=== PATIENT | female | born 1945 | race Caucasian/White ===

== ENCOUNTER 2017-09-29 16:42 | Inpatient (IN) | payer MEDICARE ==
[~2017-09-29] VITALS: Ht 162.6 cm; Wt 59.4 kg
[~2017-09-29 16:42] MED LIST: BROVANA15 MCG/2 M NEB; CALTRATE-600600 MG PO; CIPRO500 MG PO; DALIRESP500 MCG PO; FIORICET TABLET1 TAB PO; HALCION0.25 MG PO; LOPRESSOR25 MG PO; NORCO 10/325 TA1 TA1 PO; OMNICEF300 MG PO; OXYBUTYNIN CHLOR5 MG PO; OXYCONTIN10 MG PO; PHENERGAN25 M1 PO; PRINIVIL20 MG PO; PROVENTIL/2.5 MG/3 M INH; SAVELLA50 MG PO; SOMA350 MG PO; TESSALON PERLE100 MG PO; VITAMIN B-1000 MCG/M IM; VITAMIN D3400 UNI1 PO; XANAX1 MG PO; ZITHROMAX250 MG PO
[2017-09-29 17:49] LABS: BASOPHILS 0.3 % (0-2); EOSINOPHILS 1.6 % (0-7); HEMATOCRIT 41.3 % (36.0-48.0); HEMOGLOBIN 13.6 g/dL (12-16); IMMATURE GRANULOCYTES 0.1 % (0-5); LYMPHOCYTES 40.7 % (15-50); MCH 31.9 pg (26.0-34.0); MCHC 32.9 g/dL (31.0-37.0); MCV 96.7 fL (80.0-100.0); MEAN PLATELET VOLUME 10.8 fL (7.4-10.4); MONOCYTES 9.7 % (2-11); NEUTROPHILS 47.6 % (40-80); RBC 4.27 10x6/uL (4.00-5.40); WBC 6.7 10x3/uL (4.8-10.8)
[2017-09-29 17:52] LABS: PLATELET COUNT 250 10x3/uL (130-400)
[2017-09-29 18:20] LABS: ALBUMIN 3.3 g/dL (3.4-5.0); ALKALINE PHOSPHATASE 265 U/L (46-116); ALT (SGPT) 161 U/L (10-68); CALC OSMOLALITY 279 mosm/kg (275-300); CALCIUM 9.4 mg/dL (8.5-10.1); CARBON DIOXIDE 29.8 mmol/L (21.0-32.0); CHLORIDE - SERUM 105 mmol/L (98-107); CREATININE - SERUM 0.8 mg/dL (0.6-1.3); GLUCOSE 87 mg/dL (74-106); POTASSIUM - SERUM 3.9 mmol/L (3.5-5.1); PROTEIN - SERUM 7.2 g/dL (6.4-8.2); SODIUM 142 mmol/L (136-145); UREA NITROGEN 8 mg/dL (7-18); eGFR NON AFRICAN AMERICAN 75 mL/min (90-120)
[2017-09-29 18:23] LABS: TROPONIN-I < 0.017 ng/mL (0.000-0.060)
[2017-09-29 18:26] VITALS: BP 125/73; Ht 162.6 cm; Wt 59.4 kg
[2017-09-29 20:00] VITALS: BP 133/59
[2017-09-30] VITALS: BP 122/53
[2017-09-30 04:00] VITALS: BP 114/52
[2017-09-30 05:35] LABS: BASOPHILS 0.2 % (0-2); EOSINOPHILS 1.5 % (0-7); HEMATOCRIT 37.7 % (36.0-48.0); IMMATURE GRANULOCYTES 0.2 % (0-5); LYMPHOCYTES 47.9 % (15-50); MCH 31.1 pg (26.0-34.0); MCHC 31.8 g/dL (31.0-37.0); MCV 97.7 fL (80.0-100.0); MONOCYTES 9.6 % (2-11); NEUTROPHILS 40.6 % (40-80); PLATELET COUNT 240 10x3/uL (130-400); RBC 3.86 10x6/uL (4.00-5.40); RDW 13.1 % (11.5-14.5)
[2017-09-30 05:54] LABS: ALBUMIN 2.8 g/dL (3.4-5.0); ALKALINE PHOSPHATASE 218 U/L (46-116); ALT (SGPT) 122 U/L (10-68); AMYLASE - SERUM 40 U/L (25-115); CALC OSMOLALITY 280 mosm/kg (275-300); CALCIUM 8.4 mg/dL (8.5-10.1); CARBON DIOXIDE 27.6 mmol/L (21.0-32.0); CHLORIDE - SERUM 107 mmol/L (98-107); CREATININE - SERUM 0.8 mg/dL (0.6-1.3); GLUCOSE 116 mg/dL (74-106); LIPASE 56 U/L (73-393); POTASSIUM - SERUM 3.4 mmol/L (3.5-5.1); PROTEIN - SERUM 6.2 g/dL (6.4-8.2); SODIUM 141 mmol/L (136-145); UREA NITROGEN 10 mg/dL (7-18); eGFR NON AFRICAN AMERICAN 75 mL/min (90-120)
--- NOTE | 2017-09-30 07:35 | NUR ---
PT AOX4 RESP EVEN AND NONLABORED PT DENIES NEEDS AT THIS TIME IV TO LEFT FOREARM PATENT AND INTACT AT THIS TIME SRX2 BED AT LOWEST SETTING CALL LIGHT WITHIN REACH WILL CONTINUE TO MONITOR
[2017-09-30 08:45] VITALS: BP 117/56
[2017-09-30 13:33] VITALS: BP 110/43
[2017-09-30 16:45] VITALS: BP 144/70
[2017-09-30 20:00] VITALS: BP 148/68
--- NOTE | 2017-09-30 20:43 | NUR ---
ER DR CALLED FOR 4MG ZOFRAN IV Q6HP FOR NAUSEA AFTER PHENERGAN WAS VOMITED UP
--- NOTE | 2017-09-30 21:27 | NUR ---
PATIENT REQUESTED PIV IN LEFT FA TO BE D/C AND A NEW ONE STARTED. 20G STARTED IN RIGHT FOREARM.
--- NOTE | 2017-09-30 22:15 | NUR ---
VEIN TURNED RED FROM NEW PIV SITE IN RIGHT FOR ARM. PIV LEFT INPLACE WITH ICE AND HEAT FOR THE PATIENT TO ALTERNATE NEEDED. 20G PIV TO THE LEFT UNDERSIDE FOREARM. VANC STARTED WITH PUMP.
--- NOTE | 2017-10-01 02:15 | NUR ---
RN NOTE: PT RESTING ON RIGHT SIDE WITH EYES CLOSED AND UNLABORED BREATHING. IV IN RIGHT FA SALINE LOCKED. TELEMETRY IN PLACE. WILL CONTINUE TO MONITOR FOR NEEDS. SIDE RAILS UP X2 FOR SAFETY.
[2017-10-01 07:09] LABS: BILIRUBIN - TOTAL 0.21 mg/dL (0.2-1.3); CALCIUM 9.2 mg/dL (8.5-10.1); CARBON DIOXIDE 27.7 mmol/L (21.0-32.0); CREATININE - SERUM 0.9 mg/dL (0.6-1.3); PROTEIN - SERUM 7.2 g/dL (6.4-8.2)
[2017-10-01 07:10] LABS: ANION GAP 11.7 mmol/L (8-16); POTASSIUM - SERUM 4.4 mmol/L (3.5-5.1)
--- NOTE | 2017-10-01 08:00 | NUR ---
ASSESSMENT PER FLOW SHEET.PT WITHOUT DISTRESS.CALL LIGHT IN REACH
[2017-10-01 11:04] VITALS: BP 124/59
[2017-10-01 13:32] VITALS: BP 111/61
--- NOTE | 2017-10-01 19:00 | NUR ---
REMAINS WITHOUT NEEDS,WITHOUT CHANE.CONT PLAN OF CARE
[2017-10-01 19:07] LABS: IMMUNOGLOBULIN A 288 mg/dL (64-422); IMMUNOGLOBULIN G 759 mg/dL (700-1600)
[2017-10-01 20:00] VITALS: BP 126/74
[2017-10-02 04:00] VITALS: BP 133/72
--- NOTE | 2017-10-02 07:29 | NUR ---
REPORT RECEIVED FROM TERMITE EXTERMINATOR HELPER NURSE. CALL LIGHT IN REACH.
--- NOTE | 2017-10-02 08:46 | NUR ---
ASSESSMENT COMPLETED. AM MEDS ADMINISTERED. REQUESTING IV PAIN MEDS BUT TOO SOON. CALL LIGHT IN REACH. WILL CONTINUE WITH PLAN OF CARE.
--- NOTE | 2017-10-02 09:23 | NUR ---
Vancomycin trough is 10.4, increased to 1gm q12h and started 12-11 at 1800.
--- NOTE | 2017-10-02 09:35 | NUR ---
MORPHINE 3 MG SIVP PER C/O PAIN OF 3 TO CHEST. CALL LIGHT IN REACH.
[2017-10-02 09:57] VITALS: BP 146/53
--- NOTE | 2017-10-02 11:07 | NUR ---
STATES PAIN IS STILL A 10 AND SHE DID NOT FEEL ANY RELIEF. PATIENT IS LYING IN BED WATCHING TV AND TALKING ON THE PHONE. STATES SHE WATCHED ME DRAW IT UP AND PUSH IT BUT SHE STILL DOESN'T FEEL ANYTHING. NORCO PO ADMINISTERED. C/O HAVING TO WAIT 7 HOURS FOR PAIN MEDS LAST NIGHT BUT THE LONGEST SHE HAD TO WAIT WAS 4.5 HOURS. CALL LIGHT IN REACH.
--- NOTE | 2017-10-02 12:01 | NUR ---
STATES PAIN IS NOW DOWN TO A 7 OR 8. WILL TAKE ANOTHER NURSE IN ROOM WITH ME NEXT TIME TO WITNESS ME ADMINISTERING MED.
[2017-10-02 12:12] LABS: IMMUNOGLOBULIN E 79 IU/mL (0-100)
[2017-10-02 12:57] VITALS: BP 136/71
--- NOTE | 2017-10-02 13:20 | NUR ---
PT HERE FOR COPD EXACERBATION FOR THIS VISIT IV TO RIGHT FOREARM PATENT AND INTACT AT THIS TIME PT AOX4 RESP EVEN AND NONLABORED AT THIS TIME SRX2 BED AT LOWEST SETTING CALL LIGHT WITHIN REACH WILL CONTINUE TO MONITOR
[2017-10-02 16:31] VITALS: BP 134/70
--- NOTE | 2017-10-02 17:40 | NUR ---
PATIENT IV RESTARTED IN RIGHT ARM. PATIENT TOLERATED WITH SMALL AMOUNT OF PAIN. 20 G X 1 STICK. MORPHINE 3 MG GIVEN IVP CALL. LIGHT WITHIN REACH.
[2017-10-02 20:00] VITALS: BP 108/39
--- NOTE | 2017-10-02 20:00 | NUR ---
ASSESSSMENT PER FLOWSHEET. UP AD HUI WALKING IN HALLWAY. IV PATENT RT FOREARM OF NS AT 30CC'S/HR.
--- NOTE | 2017-10-02 21:45 | NUR ---
C/O LUNG AND BACK PAIN RATES PAIN LEVEL #9. MORPHINE 3MG IVP GIVEN FOR PAIN RELIEF.
[2017-10-03] VITALS: BP 94/49
--- NOTE | 2017-10-03 | NUR ---
EYES CLOSED RESPIRATIONS WITH EASE AND UNLABORED.
--- NOTE | 2017-10-03 03:36 | NUR ---
C/O PAIN LUNGS/BACK RATES PAIN #6. MORPHINE 3MG IVP GIVEN FOR PAIN CONTROL.
[2017-10-03 04:00] VITALS: BP 138/55
--- NOTE | 2017-10-03 05:40 | NUR ---
REQUESTING MED FOR SPASMS. VALIUM 10 MG PO GIVEN FOR RELIEF.
--- NOTE | 2017-10-03 07:00 | NUR ---
REPORT RECIEVED ASSUMED CARE. PATIENT IN BED WITH IV INTACT. NO COMPLAINTS AT THIS TIME. CALL LIGHT WITHIN REACH.
[2017-10-03 09:00] VITALS: BP 135/63
[2017-10-03 09:44] LABS: BASOPHILS 0.2 % (0-2); EOSINOPHILS 1.4 % (0-7); HEMATOCRIT 39.1 % (36.0-48.0); HEMOGLOBIN 12.7 g/dL (12-16); IMMATURE GRANULOCYTES 0.2 % (0-5); LYMPHOCYTES 45.2 % (15-50); MCH 31.8 pg (26.0-34.0); MCHC 32.5 g/dL (31.0-37.0); MCV 97.8 fL (80.0-100.0); MEAN PLATELET VOLUME 10.7 fL (7.4-10.4); MONOCYTES 9.8 % (2-11); NEUTROPHILS 43.2 % (40-80); PLATELET COUNT 214 10x3/uL (130-400); RDW 13.4 % (11.5-14.5); WBC 6.6 10x3/uL (4.8-10.8)
[2017-10-03 10:03] LABS: ALKALINE PHOSPHATASE 232 U/L (46-116); ALT (SGPT) 95 U/L (10-68); CALC OSMOLALITY 279 mosm/kg (275-300); CALCIUM 9.9 mg/dL (8.5-10.1); CARBON DIOXIDE 28.9 mmol/L (21.0-32.0); CHLORIDE - SERUM 105 mmol/L (98-107); CREATININE - SERUM 0.6 mg/dL (0.6-1.3); POTASSIUM - SERUM 3.8 mmol/L (3.5-5.1); PROTEIN - SERUM 6.7 g/dL (6.4-8.2); SODIUM 141 mmol/L (136-145); UREA NITROGEN 10 mg/dL (7-18); eGFR NON AFRICAN AMERICAN > 90 mL/min (90-120)
[2017-10-03 10:04] LABS: GLUCOSE 102 mg/dL (74-106)
[2017-10-03 12:25] VITALS: BP 151/66
--- NOTE | 2017-10-03 16:00 | NUR ---
IV RED AND HARD. REMOVED WITH CATH TIP INTACT. RESTARTED IN RIGHT WRIST 20 G X 1 STICK. TOLERATED WITH SMALL AMOUNT OF PAIN. CALL LIGHT WITHIN REACH.
[2017-10-03 16:15] VITALS: BP 133/69
--- NOTE | 2017-10-03 18:45 | NUR ---
PATIENT UP IN JEREZ AMBULATING WITH NO PROBLEMS. IV INTACT.
--- NOTE | 2017-10-03 20:22 | NUR ---
ASSESSMENT PER FLOWSHEET. C/O PAIN BACK AND LUNGS CHRONIC. RATES PAIN LEVEL #8. MORPHINE 3MG IVP FOR PAIN CONTROL.
--- NOTE | 2017-10-03 22:10 | NUR ---
MEDS GIVEN PER DEC. VISITING WITH HER DAUGHTER.
--- NOTE | 2017-10-03 23:33 | NUR ---
EYES CLOSED RESPIRATIONS WITH EASE AND UNLABORED.
[2017-10-04] VITALS: BP 139/60
--- NOTE | 2017-10-04 00:10 | NUR ---
C/O PAIN IN BACK AND LUNGS (CHRONIC). RATES PAIN LEVEL #6-8. MORPHINE 3MG IVP GIVEN FOR PAIN CONTROL.PT USING INCENTIVE SPIROMETER.
--- NOTE | 2017-10-04 03:03 | NUR ---
EYES CLOSED RESPIRATIONS WITH EASE AND UNLABORED.
--- NOTE | 2017-10-04 06:00 | NUR ---
MEDS GIVEN PER MAR.NO CHANGES IN ASSESSMENT.
[2017-10-04 06:18] LABS: BASOPHILS 0.1 % (0-2); EOSINOPHILS 0.8 % (0-7); HEMATOCRIT 39.1 % (36.0-48.0); HEMOGLOBIN 12.6 g/dL (12-16); IMMATURE GRANULOCYTES 0.1 % (0-5); LYMPHOCYTES 43.2 % (15-50); MCH 31.3 pg (26.0-34.0); MCHC 32.2 g/dL (31.0-37.0); MCV 97.3 fL (80.0-100.0); MEAN PLATELET VOLUME 10.8 fL (7.4-10.4); MONOCYTES 10.5 % (2-11); NEUTROPHILS 45.3 % (40-80); PLATELET COUNT 229 10x3/uL (130-400); RBC 4.02 10x6/uL (4.00-5.40); RDW 13.6 % (11.5-14.5); WBC 7.2 10x3/uL (4.8-10.8)
[2017-10-04 06:30] LABS: ALBUMIN 2.9 g/dL (3.4-5.0); ALKALINE PHOSPHATASE 265 U/L (46-116); ALT (SGPT) 173 U/L (10-68); CALC OSMOLALITY 281 mosm/kg (275-300); CALCIUM 9.5 mg/dL (8.5-10.1); CARBON DIOXIDE 29.1 mmol/L (21.0-32.0); CHLORIDE - SERUM 106 mmol/L (98-107); CREATININE - SERUM 0.7 mg/dL (0.6-1.3); GLUCOSE 95 mg/dL (74-106); POTASSIUM - SERUM 4.3 mmol/L (3.5-5.1); PROTEIN - SERUM 6.6 g/dL (6.4-8.2); SODIUM 141 mmol/L (136-145); UREA NITROGEN 15 mg/dL (7-18); eGFR NON AFRICAN AMERICAN 87 mL/min (90-120)
[2017-10-04 08:10] VITALS: BP 146/62
--- NOTE | 2017-10-04 10:42 | NUR ---
Patient Name: ADELE COSBY Admission Status: Elective Accout number: [id number] Admission Date: 09-29-2017 : 1945 Admission Diagnosis:PNEUMONIA, UNSPECIFIED ORGANISM Attending: SANDRA CULLEN Current LOS: 5 Anticipated DC Date: Planned Disposition: Home Primary Insurance: [employer] ADV Discharge Planning Comments: CM met with patient to assess discharge planning needs. Patient lives independently at home where she plans to return too. Patient stated that she lives on property with her family. She lives in a handicap house and she has a walker and wheelchair at home. Her daughter Juan Manuel Castillo will be the one to drive her home. She stated that it is safe to return home. Patient does not want HH at this time, CM will continue to follow and assist with discharge planning needs. PCP: [facility] Juan Manuel Castillo [employer] Director: Sraay Livingston * Is the patient Alert and Oriented? Yes 0 * How many steps to enter\exit or inside your home? 1 0 * PCP LUCAS 0 * Pharmacy [facility] 0 * Preadmission Environment Home Alone 0 * ADLs Independent 0 * Equipment Walker Wheelchair 0 * Other Equipment HANDRAILS 0 * List name and contact numbers for known caregivers / representatives who currently or will assist patient after discharge: JUAN MANUEL CASTILLO (DAUGHTER) 0 * Community resources currently utilized None 0 * Additional services required to return to the preadmission environment? No 0 * Can the patient safely return to the preadmission environment? Yes 0 * Has this patient been hospitalized within the prior 30 days at any hospital? No 0 Grand Total: 0
[2017-10-04] MEDS ORDERED: MEDROL DOSE PACK4 MG PO (13:45)
[2017-10-04] MEDS ORDERED: DOXYCYCLINE HY100 M2 PO (13:45)
--- NOTE | 2017-10-04 14:04 | NUR ---
DR GAVIN CALLED FOR DISCHARGE ORDERS. CALLED DOXY AND MEDROL DOSE PACK TO POC PER PT REQUEST
[2017-10-04] MEDS ORDERED: TORADOL10 MG PO (14:10)
--- NOTE | 2017-10-04 15:04 | NUR ---
DISCHARGE INSTRUCTIONS REVIEWED AT THIS TIME. NO QUESTIONS OR CONCERNS VOICED. PIV TO R WRIST DC'D WITH CATHETER INTACT. PRESSURE AND DRESSING APPLIED. ESCORTED OUT VIA WC.
== END 2017-10-04 15:05 | disposition home or self-care (01) | DRG 178 ==
LOC: D.MS 16:42
PROVIDERS: Family Medicine; Internal Medicine Pulmonary Disease; ADMIT Family Medicine
DX: J15.6 Pneumonia due to other Gram-negative bacteria (principal); J98.11 Atelectasis; J44.0 Chronic obstructive pulmonary disease with (acute) lower respiratory infection; J44.1 Chronic obstructive pulmonary disease with (acute) exacerbation; B37.0 Candidal stomatitis; F17.203 Nicotine dependence unspecified, with withdrawal; R79.89 Other specified abnormal findings of blood chemistry; J32.9 Chronic sinusitis, unspecified; E87.6 Hypokalemia; Z86.73 Personal history of transient ischemic attack (TIA), and cerebral infarction without residual deficits; Z95.0 Presence of cardiac pacemaker; K21.9 Gastro-esophageal reflux disease without esophagitis; Z77.090 Contact with and (suspected) exposure to asbestos; I34.1 Nonrheumatic mitral (valve) prolapse; I10 Essential (primary) hypertension; F41.9 Anxiety disorder, unspecified

== ENCOUNTER 2019-03-16 22:17 | Inpatient (IN) | payer OTHER ==
[~2019-03-16] VITALS: Ht 162.6 cm; Wt 52.2 kg
[~2019-03-16 22:17] MED LIST changes: +BUTALB-APAP-CA1 EACH PO; +DOXYCYCLINE HY100 M2 PO; -FIORICET TABLET1 TAB PO; +MEDROL DOSE PACK4 MG PO; +TORADOL10 MG PO
[2019-03-16 22:49] LABS: BASOPHILS 0.1 % (0-2); EOSINOPHILS 0.1 % (0-7); HEMATOCRIT 41.3 % (36.0-48.0); HEMOGLOBIN 13.9 g/dL (12-16); IMMATURE GRANULOCYTES 0.3 % (0-5); LYMPHOCYTES 14.9 % (15-50); MCH 31.8 pg (26.0-34.0); MCHC 33.7 g/dL (31.0-37.0); MCV 94.5 fL (80.0-100.0); MEAN PLATELET VOLUME 11.5 fL (7.4-10.4); MONOCYTES 15.3 % (2-11); NEUTROPHILS 69.3 % (40-80); PLATELET COUNT 214 10x3/uL (130-400); RBC 4.37 10x6/uL (4.00-5.40); RDW 14.1 % (11.5-14.5); WBC 11.4 10x3/uL (4.8-10.8)
[2019-03-16 22:56] LABS: APPEARANCE TURBID (CLEAR); BILIRUBIN 1+ (NEGATIVE); COLOR YELLOW (YELLOW); GLUCOSE NEGATIVE (NEGATIVE); KETONE NEGATIVE (NEGATIVE); NITRITE POSITIVE (NEGATIVE); PROTEIN 1+ mg/dL (NEGATIVE); UROBILINOGEN NORMAL (NORMAL); WHITE CELLS - URINE >50 /hpf (0-5)
[2019-03-16 22:57] LABS: BACTERIA MANY /hpf (NONE SEEN); EPITHELIAL CELLS NSEEN /hpf (0-5); RED CELLS - URINE 0-5 /hpf (0-5)
[2019-03-16 23:06] LABS: ANION GAP 10.6 mmol/L (8-16); BILIRUBIN - TOTAL 0.35 mg/dL (0.2-1.3); CALCIUM 9.3 mg/dL (8.5-10.1); CARBON DIOXIDE 31.1 mmol/L (21.0-32.0); CREATININE - SERUM 0.8 mg/dL (0.6-1.3); MAGNESIUM - SERUM 1.9 mg/dL (1.8-2.4); POTASSIUM - SERUM 3.7 mmol/L (3.5-5.1)
[2019-03-17 02:05] VITALS: BP 130/61; BMI 19.7
[2019-03-17 04:58] VITALS: BP 134/78
[2019-03-17 07:37] VITALS: BP 135/84
--- NOTE | 2019-03-17 09:32 | NUR ---
AM MEDS GIVEN AT THIS TIME. ALSO GAVE 1000MG OF TYLENOL FOR TEMP OF 101.1. ALSO GAVE 2MG OF MORPHINE FOR PAIN LEVEL OF 8/10. PT DENIES ANY OTHER NEEDS AT THIS TIME. A/O X4, RESP EVEN AND NONLABORED ON RA. RT WRIST IV SL. CALL LIGHT IN REACH, NAD NOTED, WILL CONTINUE TO MONITOR.
--- NOTE | 2019-03-17 11:04 | NUR ---
PT NOTIFIED THIS NURSE THAT SHE IS GOING OUTSIDE TO GET SOME FRESH AIR. RECHECKED TEMP WHICH NOW IS 98.3.
[2019-03-17 11:22] VITALS: BP 129/67
--- NOTE | 2019-03-17 11:30 | NUR ---
PT BACK TO ROOM, ASKING FOR PAIN MEDICATION, INFOMRED HER THAT SHE CANNOT HAVE HER MORPHINE UNTIL AROUND 1320. INFOMRED PT THAT SHE DOES HAVE NORCO ORDER IF SHE WANTS IT NOW. PT STATED THAT SHE WOULD WAIT UNTIL SHE COULD HAVE THE MORPHINE.
--- NOTE | 2019-03-17 14:03 | NUR ---
RT WRIST IV LEAKING. D/C IV WITH CATHETER TIP INTACT. NEW 22G IV STARTED TO LT FA X2 STICKS. 2MG OF MORPHINE GIVEN AT THIS TIME. FOR PAIN LEVEL OF 8/10, ALSO GAVE 4MG OF ZOFRAN FOR NAUSEA. PT DENIES ANY OTHER NEEDS AT THIS TIME. CALL LIGHT IN REACH, NAD NOTED, WILL CONTINUE TO MONITOR.
[2019-03-17 15:28] VITALS: BP 109/59
--- NOTE | 2019-03-17 19:17 | NUR ---
PATIENT AMBULATING AROUND ROOM. BROUGHT PATIENT WATER PER HER REQUEST. PATIENT DENIES OTHER NEEDS AT THIS TIME. BED IN LOWEST POSITION AND CALL LIGHT WITHIN REACH. ENCOURAGED THE PATIENT TO CALL IF SHE HAS NEEDS. WILL CONTINUE TO MONITOR.
[2019-03-17 19:27] VITALS: BP 143/70
[2019-03-17] MEDS ORDERED: XANAX1 MG PO (20:20)
--- NOTE | 2019-03-17 20:23 | NUR ---
SPOKE WITH DR. RAM WHO RESTARTED PATIENT'S HOME XANAX
--- NOTE | 2019-03-17 20:35 | NUR ---
CALLED VENDING MACHINE ASSEMBLER TO PULL PATIENT'S NEW ORDER XANAX
--- NOTE | 2019-03-17 20:37 | NUR ---
EXPLAINED TO THE PATIET THAT I CALLED THE ROUTE SALES TRAINEE TO PULL HER XANAX. I EXPLAINED THAT IT WOULD BE A WHILE BEFORE THE ROUTE SALES TRAINEE CAME TO PULL MED AND THAT I WOULD BRING IT TO HER SOON IT IS PULLED. PATIENT VERBALIZED UNDERSTANDING
[2019-03-18] VITALS: BP 108/45
[2019-03-18 04:34] VITALS: BP 103/68
--- NOTE | 2019-03-18 07:08 | NUR ---
AM ROUNDS- PT IN BED, A/O X4, RESP EVEN AND NONLABORED ON RA. LT FA IV SL. MONITOR SHOWING SR WITH RATE OF 79 ANB BBB. PACEMAKER NOTED TO LT CHEST. PT DENIES ANY NEEDS AT THIS TIME. CALL LIGHT IN REACH, NAD NOTED, WILL CONTINUE PLAN OF CARE.
[2019-03-18 07:16] LABS: BASOPHILS 0 % (0-2); EOSINOPHILS 0.4 % (0-7); HEMATOCRIT 36.1 % (36.0-48.0); HEMOGLOBIN 12.1 g/dL (12-16); IMMATURE GRANULOCYTES 0.2 % (0-5); LYMPHOCYTES 19.9 % (15-50); MCH 31.6 pg (26.0-34.0); MCHC 33.5 g/dL (31.0-37.0); MCV 94.3 fL (80.0-100.0); MEAN PLATELET VOLUME 11.7 fL (7.4-10.4); MONOCYTES 18.5 % (2-11); PLATELET COUNT 204 10x3/uL (130-400); RBC 3.83 10x6/uL (4.00-5.40); RDW 14.1 % (11.5-14.5)
[2019-03-18 07:26] LABS: WBC 8.2 10x3/uL (4.8-10.8)
[2019-03-18 07:42] LABS: CALC OSMOLALITY 279 mosm/kg (275-300); CALCIUM 8.9 mg/dL (8.5-10.1); CARBON DIOXIDE 29.5 mmol/L (21.0-32.0); CHLORIDE - SERUM 105 mmol/L (98-107); CREATININE - SERUM 0.6 mg/dL (0.6-1.3); GLUCOSE 107 mg/dL (74-106); POTASSIUM - SERUM 3.2 mmol/L (3.5-5.1); SODIUM 141 mmol/L (136-145); UREA NITROGEN 9 mg/dL (7-18); eGFR NON AFRICAN AMERICAN > 90 mL/min (90-120)
[2019-03-18 07:56] VITALS: Ht 162.6 cm; Wt 52.2 kg
[2019-03-18 08:27] VITALS: BP 134/72
--- NOTE | 2019-03-18 08:38 | NUR ---
AM MEDS GIVEN AT THIS TIME. ALSO GAVE 40MEQ OF K FOR LOW K OF 3.2. PT DENIES ANY NEEDS AT THIS TIME. CALL LIGHT IN REACH, NAD NOTED, WILL CONTINUE TO MONITOR.
--- NOTE | 2019-03-18 10:17 | NUR ---
COVERED PT'S IV FOR SHOWER AND PROVIDED HER WITH SUPPLIES NEEDED FOR SHOWER.
--- NOTE | 2019-03-18 10:38 | NUR ---
NOTIFIED BY SPRING UPHOLSTERER THAT PT WAS GOING OUTSIDE FOR FRESH AIR.
--- NOTE | 2019-03-18 10:48 | NUR ---
PT BACK TO ROOM, DENIES ANY NEEDS AT THIS TIME. CALL LIGHT IN REACH, NAD NOTED, WILL CONTINUE TO MONITOR.
[2019-03-18 12:31] VITALS: BP 112/69
[2019-03-18 17:03] VITALS: BP 125/68
--- NOTE | 2019-03-18 18:36 | NUR ---
1MG OF XANAX GIVEN PER PT REQUEST. PT TALKING ON PHONE, DENIES ANY OTHE NEEDS AT THIS TIME.
--- NOTE | 2019-03-18 19:25 | NUR ---
PATIENT RESTING IN BED AND DENIES NEEDS AT THIS TIME. BED IN LOWEST POSITION AND CALL LIGHT WITHIN REACH. ENCOURAGED THE PATIENT TO CALL IF SHE HAS NEEDS. WILL CONTINUE TO MONITOR.
[2019-03-18 20:18] VITALS: BP 109/46
[2019-03-19 00:16] VITALS: BP 115/51
[2019-03-19 04:14] VITALS: BP 123/53
[2019-03-19 07:04] LABS: CALC OSMOLALITY 285 mosm/kg (275-300); CARBON DIOXIDE 29.2 mmol/L (21.0-32.0); CHLORIDE - SERUM 106 mmol/L (98-107); CREATININE - SERUM 0.6 mg/dL (0.6-1.3); GLUCOSE 110 mg/dL (74-106); POTASSIUM - SERUM 4.3 mmol/L (3.5-5.1); SODIUM 143 mmol/L (136-145); eGFR NON AFRICAN AMERICAN > 90 mL/min (90-120)
[2019-03-19 07:05] LABS: HEMATOCRIT 36.4 % (36.0-48.0); HEMOGLOBIN 12.2 g/dL (12-16); LYMPHOCYTES 20.3 % (15-50); MCHC 33.5 g/dL (31.0-37.0); MCV 95.5 fL (80.0-100.0); NEUTROPHILS 63.8 % (40-80); PLATELET COUNT 191 10x3/uL (130-400); RBC 3.81 10x6/uL (4.00-5.40); RDW 13.6 % (11.5-14.5); UREA NITROGEN 12 mg/dL (7-18); WBC 6.3 10x3/uL (4.8-10.8)
[2019-03-19 07:35] VITALS: BP 118/82
--- NOTE | 2019-03-19 07:36 | NUR ---
MORNING ROUNDS MADE. PT UP AB HUI IN ROOM. A/O X 4. DENIES PAIN AT THIS TIME. VITALS TAKEN, STABLE. L FA IV, SL, DSRG C/D/I, NO REDNESS OR EDEMA NOTED. BREATHING EVEN AND UNLABORED. NO EDEMA NOTED. PT STATES THAT SHE DOESNT WANT HER BELLY SHOT THIS AM, DUE TO BLEEDING. NO FURTHER CONCERNS AT THIS TIME. FALL PRECAUTIONS IN PLACE. NON SKID SOCKS ON. BED LOWERED AND LOCKED. WILL CTM.
--- NOTE | 2019-03-19 08:39 | NUR ---
PT TOOK MEDS WITHOUT DIFFICULTY. NO FURTHER CONCERNS AT THIS TIME. WILL CTM.
--- NOTE | 2019-03-19 09:24 | MORECARE ---
CASE MANAGEMENT DISCHARGE SUMMARY PATIENT: ADELE COSBY UNIT: [id number] ADM DATE: 03/16/19 AGE: 73 : 46 SEX: F ROOM/BED: D.1202 AUTHOR: NAEEM VILLAREAL PHYSICIAN: REFERRING PHYSICIAN: VAUGHN RAM MD DATE OF SERVICE: 03/19/19 Discharge Plan Patient Name: ADELE COSBY Facility: [facility]:[place] : 1945 Planned Disposition: Home Anticipated Discharge Date: Discharge Date: Expected LOS: Initial Reviewer: [email or web address] Initial Review Date: 03/19/2019 Generated: 03/19/19 10:23 am Patient Name: ADELE COSBY Page [phone] at 0924 All edits/amendments must be made on the electronic document DICTATION DATE: 03/19/19922 SENIOR MARKETING ANALYST: EZRA 03/19/19922 RPT#: [id number] DC DATE: STATUS: ADM IN [facility] [address] [place] [address] END OF REPORT
--- NOTE | 2019-03-19 09:31 | MORECARE ---
CASE MANAGEMENT DISCHARGE SUMMARY PATIENT: ADELE COSBY UNIT: [id number] ADM DATE: 03/16/19 AGE: 73 : 46 SEX: F ROOM/BED: D.1202 AUTHOR: MONO,DOC PHYSICIAN: REFERRING PHYSICIAN: VAUGHN RAM MD DATE OF SERVICE: 03/19/19 Discharge Plan Patient Name: ADELE COSBY Facility: [facility]:[place] : 1945 Planned Disposition: Home Anticipated Discharge Date: Discharge Date: Expected LOS: Initial Reviewer: ELVIS Initial Review Date: 03/19/2019 Generated: 03/19/19 10:31 am Comments DCP- Discharge Planning Updated by ELVIS: Roxy Cruz on 03/19/19 8:[address] Patient Name: ADELE COSBY Admission Status: ER Accout number: [id number] Admission Date: 03-16-2019 : 1945 Admission Diagnosis: Attending: VAUGHN RAM Current LOS: 3 Anticipated DC Date: Planned Disposition: Home Primary Insurance: amiando Discharge Planning Comments: M MEET WITH PT AFTER GETTING VERBAL CONSENT TO CONTINUE WITH INITAL ASSESSMENT AND DISCHARGE NEEDS. CM EDUCATED ON ROLE OF CM AND THE SERVICES AVALIABLE SUCH HH, REHAB AND DME SERVICES. PT LIVES AT HOME WITH SISTER AND FEELS THIS IS A SAFE PLAN FOR DC.. DENIES AN CM NEEDS AT THIS TIME. CM WILL CONTIUNUE TO FOLLOW Records Assistant: Roxy Cruz DCPIA - Discharge Planning Initial Assessment Updated by [id number]: Roxy Cruz on 03/19/19 9:25 am * Is the patient Alert and Oriented? Yes * How many steps to enter\exit or inside your home? * PCP Onofre * Pharmacy [place] * Preadmission Environment Home with Family * ADLs Independent * Verbal permission to speak to the caregivers and representatives has been obtained from the patient. N/A * Community resources currently utilized Other * Additional services required to return to the preadmission environment? No * Can the patient safely return to the preadmission environment? Yes * Has this patient been hospitalized within the prior 30 days at any hospital? No Coverage Notice Reviewer: ELVIS - Roxy Cruz Notice Issued Date-Time: 03/19/2019 9:00 Notice Type: IM Discharge Notice Notice Delivered To: Patient Relationship to Patient: Self Placement Director Name: Delivery Method: HAND - Hand Delivered Elysia Days: Prior Verbal Notification: Recipient Understood Notice: Yes Recipient Signature: Yes Med Rec Note Co-signed by Attending: Coverage Notice Comment: Last DP export: 03/19/19 8:24 a Patient Name: ADELE COSBY Page [phone] at 0931 All edits/amendments must be made on the electronic document DICTATION DATE: 03/19/19929 DESCRIPTIVE CATALOG LIBRARIAN: EZRA 03/19/19929 RPT#: [id number] DC DATE: STATUS: ADM IN [facility] [address] [place] [address] END OF REPORT
[2019-03-19 10:36] VITALS: BP 151/86
--- NOTE | 2019-03-19 12:00 | NUR ---
SPOKE WITH CHELSEA IN LAB. SHE STATED THAT PT BLOOD CULTURES WOULD NOT RESULT BACK UNTIL CLOSE TO MIDNIGHT TONIGHT DUE TO TIMING WHEN BLOOD CULTURES WERE DRAWN. ALSO INQUIRED ABOUT PT URINE CULUTRE. CHELSEA INFORMED ME THAT CULTURES NEEDED TO BE SENT OFF. INFORMED DR. RENDON OF THESE RESULTS. NO FURTHER CONERNS AT THIS TIME.
--- NOTE | 2019-03-19 12:21 | NUR ---
I have reviewed this patient and I concur with the Shift Assessment completed by the Licensed Practical Nurse today this shift.
--- NOTE | 2019-03-19 13:28 | NUR ---
PT ANXIOUS TO GO HOME. REFUSES TO WEAR TELE. TELE REMOVED. PT DRESSED AND AT NURSES DESK ASKING ABOUT DC PAPERS. INFORMED PT THAT I HAVE TO WAIT FOR DR. RENDON TO PUT IN DC ORDER IN THE COMPUTER AND THEN THE DC NURSE WILL PUT TOGETHER DC PAPERWORK AND WE WILL GET HE HOME. PT STATED "I NEED OUT OF HERE BY 5 OR 6 BECUASE I GOT FAMILY WAITING ON ME AT HOME" INFORMED PT THAT I WAS DOING MY BEST. NO FURTHER CONCERNS AT THIS TIME.
[2019-03-19] MEDS ORDERED: MACROBID100 MG PO (13:48)
--- NOTE | 2019-03-19 14:54 | NUR ---
DC GIVEN TO PT IV REMOVED FROM L FA, TIP INTACT.
--- NOTE | 2019-03-19 14:55 | NUR ---
PT DC HOME, AMBLATORY, VIA PERSONAL CAR.
--- NOTE | 2019-03-20 12:03 | MORECARE ---
CASE MANAGEMENT DISCHARGE SUMMARY PATIENT: ADELE COSBY UNIT: [id number] ADM DATE: 03/16/19 AGE: 73 : 46 SEX: F ROOM/BED: D.1202 AUTHOR: MONO,DOC PHYSICIAN: REFERRING PHYSICIAN: VAUGHN RAM MD DATE OF SERVICE: 03/20/19 Discharge Plan Patient Name: ADELE COSBY Facility: [facility]:[place] : 1945 Planned Disposition: Home Anticipated Discharge Date: Discharge Date: 03/19/2019 Expected LOS: Initial Reviewer: ELVIS Initial Review Date: 03/19/2019 Generated: 03/20/19 1:03 pm Comments DCP- Discharge Planning Updated by ELVIS: Roxy Cruz on 03/19/19 8:[address] Patient Name: ADELE COSBY Admission Status: ER Accout number: [id number] Admission Date: 03-16-2019 : 1945 Admission Diagnosis: Attending: VAUGHN RAM Current LOS: 3 Anticipated DC Date: Planned Disposition: Home Primary Insurance: [employer] Discharge Planning Comments: M MEET WITH PT AFTER GETTING VERBAL CONSENT TO CONTINUE WITH INITAL ASSESSMENT AND DISCHARGE NEEDS. CM EDUCATED ON ROLE OF CM AND THE SERVICES AVALIABLE SUCH HH, REHAB AND DME SERVICES. PT LIVES AT HOME WITH SISTER AND FEELS THIS IS A SAFE PLAN FOR DC.. DENIES AN CM NEEDS AT THIS TIME. CM WILL CONTIUNUE TO FOLLOW Can Closing Machine Operator: Roxy Cruz DCPIA - Discharge Planning Initial Assessment Updated by ELVIS: Roxy Cruz on 03/19/19 9:25 am * Is the patient Alert and Oriented? Yes * How many steps to enter\exit or inside your home? * PCP Onofre * Pharmacy [place] * Preadmission Environment Home with Family * ADLs Independent * Verbal permission to speak to the caregivers and representatives has been obtained from the patient. N/A * Community resources currently utilized Other * Additional services required to return to the preadmission environment? No * Can the patient safely return to the preadmission environment? Yes * Has this patient been hospitalized within the prior 30 days at any hospital? No Coverage Notice Reviewer: ELVIS - Roxy Cruz Notice Issued Date-Time: 03/19/2019 9:00 Notice Type: IM Discharge Notice Notice Delivered To: Patient Relationship to Patient: Self Boat Garnisher Name: Delivery Method: HAND - Hand Delivered Elysia Days: Prior Verbal Notification: Recipient Understood Notice: Yes Recipient Signature: Yes Med Rec Note Co-signed by Attending: Coverage Notice Comment: Last DP export: 03/19/19 8:31 a Patient Name: ADELE COSBY Page [phone] at 1203 All edits/amendments must be made on the electronic document DICTATION DATE: 03/20/19 1202 SHOP WORKER: EZRA 03/20/19 1202 RPT#: [id number] DC DATE:03/19/19 STATUS: DIS IN [facility] [address] [place] [address] END OF REPORT
[2019-03-21 18:07] LABS: AEROBE ID Preliminary report (()); RESULT 1 Gram negative rods (())
== END 2019-03-19 14:55 | disposition home or self-care (01) | DRG 690 ==
LOC: D.ER 22:17 → D.M2 23:58 → D.M3 23:58
PROVIDERS: Emergency Medicine; ADMIT Internal Medicine Nephrology; ATTEND Internal Medicine Nephrology
DX: N39.0 Urinary tract infection, site not specified (principal); F17.203 Nicotine dependence unspecified, with withdrawal; B96.89 Other specified bacterial agents as the cause of diseases classified elsewhere; J44.9 Chronic obstructive pulmonary disease, unspecified; I10 Essential (primary) hypertension; N30.10 Interstitial cystitis (chronic) without hematuria; K21.9 Gastro-esophageal reflux disease without esophagitis; Z86.73 Personal history of transient ischemic attack (TIA), and cerebral infarction without residual deficits; Z95.0 Presence of cardiac pacemaker

== ENCOUNTER → 2020-04-17 13:14 | Outpatient (CLI) | payer MEDICARE ==
[2019-03-18 07:56] VITALS: BMI 19.7
[~2020-04-17 13:14] MED LIST changes: +MACROBID100 MG PO
== END | disposition home or self-care (01) ==
LOC: D.US 13:14
PROVIDERS: ATTEND Internal Medicine Cardiovascular Disease
DX: R55 Syncope and collapse (principal)

== ENCOUNTER 2020-05-05 13:30 | Inpatient (IN) | payer MEDICARE ==
[~2020-05-05] VITALS: Ht 162.6 cm; Wt 51.1 kg
[2020-05-06] MEDS ORDERED: BUTALB-APAP-CA1 EACH PO (14:34)
[2020-05-06] MEDS ORDERED: VISTARIL50 MG PO (14:35)
[2020-05-06] MEDS ORDERED: TOPROL XL25 MG PO (15:04)
[2020-05-06] MEDS ORDERED: BAYER CHEWABLE81 MG PO (15:10)
[2020-05-06 15:48] LABS: HEMATOCRIT 41.2 % (36.0-48.0); MCH 30.6 pg (26.0-34.0); MCHC 31.6 g/dL (31.0-37.0); MCV 96.9 fL (80.0-100.0); MEAN PLATELET VOLUME 10.4 fL (7.4-10.4); RBC 4.25 10x6/uL (4.00-5.40); RDW 13.1 % (11.5-14.5); WBC 8.1 10x3/uL (4.8-10.8)
[2020-05-06 15:55] LABS: APTT 25.9 SECONDS (22.8-39.4)
[2020-05-06 16:01] LABS: ALBUMIN 3.2 g/dL (3.4-5.0); ALKALINE PHOSPHATASE 285 U/L (30-120); ALT (SGPT) 193 U/L (10-68); BILIRUBIN - TOTAL 0.17 mg/dL (0.2-1.3); CALC OSMOLALITY 284 mosm/kg (275-300); CALCIUM 9.3 mg/dL (8.5-10.1); CHLORIDE - SERUM 109 mmol/L (98-107); CREATININE - SERUM 0.7 mg/dL (0.6-1.3); GLUCOSE 93 mg/dL (74-106); POTASSIUM - SERUM 4.4 mmol/L (3.5-5.1); PROTEIN - SERUM 6.9 g/dL (6.4-8.2); SODIUM 143 mmol/L (136-145); UREA NITROGEN 12 mg/dL (7-18); eGFR NON AFRICAN AMERICAN 87 mL/min (90-120)
[2020-05-06 16:08] LABS: INR 0.89 (0.85-1.17)
[2020-05-06 16:20] LABS: BACTERIA FEW /hpf (NEGATIVE); BILIRUBIN NEGATIVE (NEGATIVE); EPITHELIAL CELLS 0-5 /hpf (0-5); GLUCOSE NEGATIVE (NEGATIVE); KETONE NEGATIVE (NEGATIVE); NITRITE NEGATIVE (NEGATIVE); RED CELLS - URINE OCC /hpf (0-5); UROBILINOGEN NORMAL (NORMAL); WHITE CELLS - URINE 0-5 /hpf (NEGATIVE)
[2020-05-10 22:15] VITALS: BP 125/47
[2020-05-11] VITALS (23 sets, daily range): BP systolic 117–144; BP diastolic 45–74; BMI 19.4; BMI 19.6
--- NOTE | 2020-05-11 | NUR ---
PT TURNED AND REPOSITONED FOR COMFORT. MONITORS ON AND WORKING, CUFF PRESSURE QUITE A BIT LOWER THAN ART LINE, PT REQUEST TO MANAGE BP WITH CLEVIPREX AND NOT TURN NITRO BACK ON, BP MANAGED WITH CLEVIPREX PER PTS REQUEST. PRN PAIN MEDS GIVEN PER PTS REQUEST. WILL CONTINUE TO OBSERVE.
[2020-05-11] MEDS ORDERED: HALCION0.25 MG PO (10:15)
--- NOTE | 2020-05-11 18:05 | NUR ---
THIN, PALE APPEARING FEMALE PATIENT STATUS POST LEFT CAROTID ENDARTERECTOMY RECEIVED FROM OR VIA BED. REPORT RECEIVED FROM ANESTHESIA. PATIENT IS AWAKE AND GROGGY. C/O PAIN TO LEFT CAROTID INCISION 20/10 ON PAIN SCALE. DRESSING INTACT TO LEFT NECK. ICE PACK APPLIED. NING DRAIN COMPRESSED WITH SMALL AMOUTN OF BLOODY DRAINAGE. RIGHT SUBCLAVIAL TRIPLE LUMEN CATHETER INTACT. CVP LINE TRANSDUCED. WAVEFORM STABLE, LEVEL 1 MM/HG. RIGHT RADIAL ARTERIAL LINE TRANSDUCED. GOOD WAVEFORM. TEMP PROBE CUTLER TO [place]ITIKON UNIT. URINE CLEAR. DUY HOSE AND SCDS IN PLACE. SCD COMPRESSION PUMP INITIATED. CRANIAL NERVE FUNCTION INTACT.
--- NOTE | 2020-05-11 18:30 | NUR ---
O2 DECREASED TO 4 L/M VIA NASAL CANNULA. C/O PAIN AND NAUSEA.
--- NOTE | 2020-05-11 18:45 | NUR ---
VOMITED 50ML OF GREEN BILE COLORED EMESIS.
--- NOTE | 2020-05-11 18:50 | NUR ---
DR. GRISSOM NOTIFIED OF NAUSE/VOMITING. NO ANTIEMETIC OR IV PAIN MEDICATION ORDERED. ORDERS FOR ZOFRAN 4 MG EVERY 4 HOURS PRN AND MORPHINE 2 MG EVERY 1 HOUR PRN RECEIVED. ORDERS ENTERED.
--- NOTE | 2020-05-11 19:00 | NUR ---
SHIFT ASSESSMENT COMPLETED PT CARE ASSUMED. MONITORS ON AND WORKING, VSS, PT AWAKE AND ALERT, C/O PAIN. ICE PACK TO LEFT NECK, NO BLEEDING OR SWELLING NOTED AT INCISION SITE. SEE FLOW SHEET FOR FURTHER DETAILS. WILL CONTINUE TO OBSERVE.
--- NOTE | 2020-05-11 19:10 | NUR ---
BEDSIDE REPORT GIVEN TO JUSTINE MCCAIN, ONCOMING NURSE.
--- NOTE | 2020-05-11 21:00 | NUR ---
PT REQUEST PAIN MEDS OFTEN, REPOSITIONING AND ICE DOES NOT SEEM TO HELP EASE PAIN. CALL LIGHT WITHIN REACH, WILL CONTINUE TO OBSERVE.
--- NOTE | 2020-05-11 23:00 | NUR ---
PAIN MEDS GIVEN, SEE FLOW SHEET FOR FURTHER DETAILS. WILL CONTINUE TO OBSERVE.
[2020-05-12] VITALS (52 sets, daily range): BP systolic 119–189; BP diastolic 42–144
--- NOTE | 2020-05-12 01:00 | NUR ---
STILL TRYING TO MAINTAIN SBP UNDER 140 PER ART LINE, CUFF PRESSURE REMAINS UNDER 120'S. PT REQUEST PRN PAIN MEDS AT LEAST Q1H, PRN PAIN MEDS GIVEN PER PTS REQUEST AND MD ORDERS. SO FAR, WEVE BEEN ABLE TO MANAGE BLOOD PRESSURE AND PAIN WHERE PT CAN REST COMFORTABLY FOR AN HR OR SO ONCE PAIN MEDS ADMIN. CALL LIGHT WITHIN REACH, WILL CONTINUE TO OBSERVE.
--- NOTE | 2020-05-12 03:00 | NUR ---
NO CHANGES, MONITORS ON AND WORKING VSS. SEE FLOW SHEET FOR FURTHER DETAILS. WILL CONTINUE TO OBSERVE.
--- NOTE | 2020-05-12 07:30 | NUR ---
REPORT RECEIVED. PT ALERT. HAS CUTLER, RIGHT IJ, RIGHT RADIAL ANA. DR GRISSOM ROUNDING ON PT AT THIS TIME. INCISION TO LEFT SIDE OF NECK. DRESSING INTACT. TRACHEA MIDLINE. WILL CONTINUE TO MONITOR.
--- NOTE | 2020-05-12 07:32 | OP ---
PATIENT NAME: ADELE OCSBY MEDICAL RECORD: [id number] :[birth year] [facility].CV[facility] ADMISSION DATE:05/11/20 SURGEON: ARDEN GRISSOM MD DATE OF OPERATION: 05/11/2020 SURGEON: Arden Grissom MD PROCEDURE PERFORMED: Left carotid endarterectomy. PREOPERATIVE DIAGNOSIS: Left carotid stenosis. POSTOPERATIVE DIAGNOSIS: Left carotid stenosis. ANESTHESIA: General endotracheal anesthesia. ESTIMATED BLOOD LOSS: 10 cc. SPECIMENS: Plaque. CONDITION: Stable. DISPOSITION: CV ICU. OPERATIVE FINDINGS: Severe proximal internal carotid artery plaque, CorMatrix patch closure. INDICATIONS: Severe proximal left internal carotid artery stenosis. DESCRIPTION OF PROCEDURE: The patient was brought to the operating suite. General anesthesia was obtained, the patient was prepped and draped. An oblique incision was made in the left neck, taken down through the subcutaneous tissue and muscle to the common carotid artery, which was dissected out. The external carotid and thyroid branch were dissected out. Internal carotid was dissected out and facial venous branch were divided between clips or between ties and ligatures. The distal internal carotid artery was soft. Heparin was given. After the heparin was circulated, backbleeding was controlled with a bulldog clamp, inflow with a vascular clamp and backbleeding with the external carotid and thyroid branch with vessel loops. EEG and cerebral oximetry were monitored and they were normal. Therefore, the arteriotomy was made in the common carotid artery, taken out through the region of dense calcification and irregular plaque and into a region of relatively normal internal carotid. The plaque was divided in the common carotid artery with an eversion endarterectomy of the external carotid and the plaque feathered well distally. Thorough irrigation was undertaken. All bits of loose debris were removed. The patch was fashioned to the appropriate size and sutured along the edge of the arteriotomy. Prior to completing the anastomosis, backbleeding was allowed from all 3 major vessels. The endarterectomy bed was thoroughly flushed and anastomosis completed and flow restored first to the external carotid and then to the internal carotid, there was no bleeding. Hemostasis was ensured. Protamine was given. A drain was placed through a separate stab wound. The wound was closed with interrupted PDS and Monocryl and then Dermabond. TRANSINT:[id number] Voice Confirmation ID: [id number] DOCUMENT ID: [id number] OPERATIVE REPORT [id number] ADELE COSBY DANIEL W MD at 0732 CC: LUIZ ZENG M.D. and DERIC ZAVALA [id number] DICTATION DATE: 05/11/201752 IV RN: 05/11/208 ADM IN [facility] [address] [place] [id number]
--- NOTE | 2020-05-12 09:12 | NUR ---
ANA REMOVED. PRESSURE APPLIED. DRESSING IN PLACE. WILL CONTINUE TO MONITOR.
--- NOTE | 2020-05-12 09:45 | NUR ---
ICE PACK APPLIED TO LEFT SIDE OF NECK. ZOFRAN GIVEN FOR NAUSEA. AGREED THAT WE WOULD GET UP IN CHAIR AT 1015 ONCE ZOFRAN HAS HELPED. WILL CONTINUE TO MONITOR.
--- NOTE | 2020-05-12 10:33 | NUR ---
CUTLER REMOVED. 400 URINE OUTPUT. PT THEN ASSISTED TO CHAIR. IS NOW COUGHING UP "JUNK" AND USING THE YANKERS. TOLERATED WELL. WILL CONTINUE TO MONITOR. CALL LIGHT IN REACH.
--- NOTE | 2020-05-12 13:12 | NUR ---
NING PUT OUT LESS THAN 5ML. REMOVED PER DR GRISSOM. 4X4 APPLIED WITH TEGADERM. PT TOLERATED WELL.
--- NOTE | 2020-05-12 14:32 | NUR ---
ELEVATED BP. SWITCHED BP CUFFS TO ADULT SMALL. BP STILL 189/81. PRN HYDRALAZINE GIVEN. WILL CONTINUE TO MONITOR.
--- NOTE | 2020-05-12 17:39 | NUR ---
PT EATING SOME CLEAR LIQUIDS. DOES COMPLAIN OF PAIN IN HER THROAT. COMPLAINS OF NAUSEA OFF AND ON. ZOFRAN AND ULTRAM GIVEN. O2 WEANED DOWN TO 2L. NO NEEDS AT THIS TIME. CALL LIGHT IN REACH.
--- NOTE | 2020-05-12 19:30 | NUR ---
PT A/OX4, LUNGS CLEAR, O2 @ 2L VIA N/C, RIGHT IJ CVL INTACT WITH CLEVIPREX INFUSING, DRSG INTACT TO LEFT NECK, OOB AD HUI WITH BRP, WILL CONT TO MONITOR
--- NOTE | 2020-05-12 22:10 | MORECARE ---
CASE MANAGEMENT DISCHARGE SUMMARY PATIENT: ADELE COSBY UNIT: [id number] ADM DATE: 05/11/20 AGE: 74 : 47 SEX: F ROOM/BED: D[facility] AUTHOR: MONO,DOC PHYSICIAN: REFERRING PHYSICIAN: JOSÉ MANUEL GRISSOM MD DATE OF SERVICE: 05/12/20 Discharge Plan Patient Name: ADELE COSBY Facility: [facility]:[place] : 1945 Planned Disposition: Home Anticipated Discharge Date: Discharge Date: Expected LOS: Initial Reviewer: [email or web address] Initial Review Date: 05/11/2020 Generated: 05/12/20 11:09 pm Comments DCP- Discharge Planning Updated by [email or web address]: Lexi Bianchi on 05/12/20 9:[address] Patient Name: ADELE COSBY Admission Status: Urgent Accout number: [id number] Admission Date: 05-11-2020 : 1945 Admission Diagnosis: Attending: JOSÉ MANUEL GRISSOM Current LOS: 1 Anticipated DC Date: Planned Disposition: Home Primary Insurance: [employer] CHOICE PPO MCR ADVANT Discharge Planning Comments: CM met with patient to complete initial dc planning assessment. CM educated patient on the CM role and verbal consent given by patient to complete assessment. Patient lives at home with family. Patient is independent. At discharge patient plans to return home and feels this is a safe discharge. CM discussed availability of home health, rehab services, and medical equipment. Patient will have family to transport home. Patient denied known discharge needs at this time. CM will continue to follow and will assist as needed with dc plans/needs Brush Cleaner: Lexi Bianchi DCPIA - Discharge Planning Initial Assessment Updated by [email or web address]: Lexi Bianchi on 05/12/20 10:06 pm * Is the patient Alert and Oriented? Yes * How many steps to enter\exit or inside your home? ramp * PCP ZAVALA * Pharmacy [facility] * Preadmission Environment Home with Family * ADLs Independent * Equipment None * List name and contact numbers for known caregivers / representatives who currently or will assist patient after discharge: ALANA SERRA SO - [phone] * Verbal permission to speak to the caregivers and representatives has been obtained from the patient. N/A * Community resources currently utilized None * Additional services required to return to the preadmission environment? No * Can the patient safely return to the preadmission environment? Yes * Has this patient been hospitalized within the prior 30 days at any hospital? No Patient Name: ADELE COSBY Page [id number] at 2210 All edits/amendments must be made on the electronic document DICTATION DATE: 05/12/202209 FIRE HAZARD INSPECTOR: EZRA 05/12/202209 RPT#: [id number] DC DATE: STATUS: ADM IN [facility] [address] [place] [address] END OF REPORT
[2020-05-13] VITALS (83 sets, daily range): BP systolic 111–180; BP diastolic 50–115; Ht 162.6 cm; Wt 51.1 kg
--- NOTE | 2020-05-13 07:27 | NUR ---
SHIFT REPORT RECEIVED. UP IN CHAIR. ALERT AND ORIENTED. ON 2L O2 VIA NC. RIGHT SUB CVL WITH CLEVIPREX INFUSING AT 6MG/HR. DRESSING TO LEFT NECK CDI. SAFETY MEASURES IN PLACE. RATES PAIN 8/10 TO INCISION SITE. WILL REVIEW MEDICATIONS. NO FURTHER NEEDS AT THIS TIME. WILL CONTINUE TO MONITOR.
--- NOTE | 2020-05-13 12:30 | NUR ---
C/O NAUSEA. 4 MG ONDANSETRON GIVEN IV.
--- NOTE | 2020-05-13 13:05 | NUR ---
BP 139/61 CLEVIPREX TURNED OFF AT THIS TIME. WILL CONTINUE TO MONITOR.
--- NOTE | 2020-05-13 13:18 | NUR ---
AMBULATED IN UNIT. TOLERATED FAIRLY WELL. COMPLAINS OF PAIN TO LEFT NECK AND HEAD. MORPHINE GIVEN FOR PAIN. OFF 02 WITH O2 SAT 95%. BP 152/79. WILL CONTINUE TO MONITOR.
--- NOTE | 2020-05-13 15:40 | NUR ---
SBP 170S DR. GRISSOM NOTIFIED. CLEVIPREX TURNED BACK ON AT THIS TIME.
--- NOTE | 2020-05-13 17:30 | NUR ---
AMBULATED BACK TO BED. CLEVIPREX REMAINS ON. ON 1L O2 VIA NC. NO FURTHER NEEDS AT THIS TIME. WILL CONTINUE TO MONITOR.
--- NOTE | 2020-05-13 19:30 | NUR ---
PT A/OX4, RIGHT CVL INTACT WITH CLEVIPREX INFUSING, LUNGS CLEAR, O2 @ 1L VIA N/C, OOB AD HUI WITH BRP, DRSG INTACT TO LEFT NECK INCISION SITE, WILL CONT TO MONITOR
[2020-05-14] VITALS (70 sets, daily range): BP systolic 91–449; BP diastolic 41–88
--- NOTE | 2020-05-14 | NUR ---
RESTING QUIETLY WITH EYES CLOSED, VITALS STABLE
--- NOTE | 2020-05-14 07:00 | NUR ---
AWAKES EASILY IN BED SKIN WARM AND DRY. LEFT NECK DRESSING DRY AND INTACT. SWELLING NOTED IN NECK. RIGHT SUBCLAVIAN CENTRAL LINE INFUSING WITH CLEVEPREX AT 10 MG HOUR. FOR BLOOD PRESSURE CONTROL.UP AD HUI TO BATHROOM. MONITOR SR.
--- NOTE | 2020-05-14 08:00 | NUR ---
UP IN CHAIR AT BEDSIDE. PO MEDS GIVEN TO BRING BLOOD PRESSURE DOWN. WEANING CLEVEPREX FOR SBP LESS THAN 150. AMBULATED TO BATHROOM. TOLERATED WELL.
--- NOTE | 2020-05-14 10:00 | NUR ---
WEANING CLEVEPREX TOLERATES FOR SBP LESS THAN 150. NO DISTRESS. RESP DEEP AND REGULAR MONITOR SR. DRESSING DRY AND INTACT
--- NOTE | 2020-05-14 11:30 | NUR ---
LUNCH TRAY SERVED ATE WELL. NO DISTRESS. AMBULATES TO BATHROOM TOLERATES
--- NOTE | 2020-05-14 13:00 | NUR ---
CLEVEPREX OFF. FAMILY HERE UPDATE GIVEN.
--- NOTE | 2020-05-14 15:00 | NUR ---
STILL OFF CLEVEPREX. PAINS MEDS GIVEN REQUESTED. AMBULATORY INDEPENDENTLY NO DISTRESS. HAS CHRONIC BACK PAIN.
--- NOTE | 2020-05-14 16:00 | NUR ---
COMPLETE HIBCLENS BATH GIVEN WITH LINEN CHANGE.PATIENT TOLERATED WELL.
--- NOTE | 2020-05-14 17:00 | NUR ---
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
--- NOTE | 2020-05-14 17:09 | NUR ---
DR. AGUILAR HERE NOTIFIED OF CONSULT.
--- NOTE | 2020-05-14 17:38 | NUR ---
CLEVPREX RESTARTED FOR SBP 170. PATIENT INBED. COULD NOT EAT MUCH FOR SUPER. DRESSING DRY AND INTACT.
--- NOTE | 2020-05-14 19:00 | NUR ---
ASSESSMENT COMPLETED. SEE FLOWSHEET FOR ALL FINDINGS. PT A/O X4, DENIES ANY DISCOMFORT AT THIS TIME. AMBULATE TO BATHROOM WITH MINIMAL ASSISTANCE. PT CLOTILDE WELL. VSS. HOB UP. BEDSIDE TABLE AND CALL LIGHT IN REACH. CONT TO MONITOR.
--- NOTE | 2020-05-14 21:00 | NUR ---
SCHEDULED MEDS GIVEN WITH APPLE SAUCE, PT C/O OF SOME DIFFICULTY SWALLOWING PILL. PT CLOTILDE WELL WITH APPLE SAUCE. HOB UP. CPOC.
--- NOTE | 2020-05-14 23:00 | NUR ---
REASSESSMENT COMPLETED PER FLOWSHEET. PT RESTING QUIETLY WITHOUT DISTRESS. VSS. CPOC.
[2020-05-15] VITALS (14 sets, daily range): BP systolic 113–136; BP diastolic 54–87
--- NOTE | 2020-05-15 00:50 | NUR ---
PT C/O PAIN TO NECK AND BACK 8/10 ON SCALE. NORCO-10, 2 TABS GIVEN PER ORDER. PT RESPOSITIONED SELF FOR COMFORT. CALL LIGHT IN REACH. CPOC.
--- NOTE | 2020-05-15 03:00 | NUR ---
REASSESSMENT COMPLETED PER FLOWSHEET. NO ACUTE CHANGES NOTED IN PT'S CONDITION. VSS. NO NEEDS VOICES AT THIS TIME. CPOC.
--- NOTE | 2020-05-15 04:00 | NUR ---
I&O COMPLETED TO CHART.
--- NOTE | 2020-05-15 05:00 | NUR ---
ASSISTED TO BATHROOM. VOIDS WITHOUT DISTRESS. RETURNED TO BED WITHOUT DIFFIC. REPOSITIONED SELF IN BED FOR COMFORT. HOB UP. CALL LIGHT IN REACH. CPOC.
--- NOTE | 2020-05-15 07:10 | NUR ---
REPORT RECEIVED FROM OFF-GOING RN. CARMELO IS AWAKE AND ALERT. C/O INCISIONAL PAIN TO LEFT NECK AND DIFFICULTY SWALLOWING PILLS AND "HARD FOOD".
--- NOTE | 2020-05-15 07:40 | NUR ---
SCHEDULED SHIFT ASSESSMENT PERFORMED. MEDICATED WITH NORCO 10MG X 2 TABS FOR C/O INCISIONAL PAIN 8/10 ON PAIN SCALE. PUTS TABLETS INTO APPLE SAUCE TO FACILITATE SWALLOWING. STATES SHE HAS A HISTORY OF SWALLOWING DIFFICULTY INCLUDING REQUIRED DILATION OF ESOPHAGUS X 2. QUESTIONED ON DISCHARGE PLANS. STATES SHE PLANS TO GO TO A FRIEND'S HOME UPON DISCHARGE TO HAVE HELP.
[2020-05-15] MEDS ORDERED: PLAVIX75 MG PO (09:48)
[2020-05-15] MEDS ORDERED: HYDRALAZINE HCL10 MG PO (09:49)
[2020-05-15] MEDS ORDERED: NORVASC10 MG PO (09:49)
[2020-05-15] MEDS ORDERED: LOPRESSOR25 MG PO (09:50)
--- NOTE | 2020-05-15 11:32 | NUR ---
Nutrition Follow-up: POD 4 L carotid endarterectomy. C/o tongue numbness on one side since surgery. Declines nutrition supplements. Noted plans for d/c. Diet: Regular PO intake: 25-50% yesterday Wt: 112# (05/15); 114# (05/11) No new labs Meds reviewed -Encourage PO intake and honor food preferences. -Monitor wt. -RD following.
--- NOTE | 2020-05-15 13:15 | NUR ---
DISCHARGE INSTRUCTIONS GIVEN. MEDICATED WITH NORCO 10MG 1 TAB FOR 7/10 INCISIONAL PAIN. DISCHARGED TO HOME VIA WHEELCHAIR ACCOMPANIED BY FRIEND.
--- NOTE | 2020-05-15 18:30 | MORECARE ---
CASE MANAGEMENT DISCHARGE SUMMARY PATIENT: ADELE COSBY UNIT: [id number] ADM DATE: 05/11/20 AGE: 74 : 47 SEX: F ROOM/BED: D[facility] AUTHOR: MONO,DOC PHYSICIAN: REFERRING PHYSICIAN: JOSÉ MANUEL GRISSOM MD DATE OF SERVICE: 05/15/20 Discharge Plan Patient Name: ADELE COSBY Facility: [facility]:[place] : 1945 Planned Disposition: Home Anticipated Discharge Date: Discharge Date: 05/15/2020 Expected LOS: Initial Reviewer: [id number] Initial Review Date: 05/11/2020 Generated: 05/15/20 7:30 pm DCP- Discharge Planning Updated by [email or web address]: Lexi Bianchi on 05/12/20 9:[address] Patient Name: ADELE COSBY Admission Status: Urgent Accout number: [id number] Admission Date: 05-11-2020 : 1945 Admission Diagnosis: Attending: JOSÉ MANUEL GRISSOM Current LOS: 1 Anticipated DC Date: Planned Disposition: Home Primary Insurance: [employer] CHOICE PPO MCR ADVANT Discharge Planning Comments: CM met with patient to complete initial dc planning assessment. CM educated patient on the CM role and verbal consent given by patient to complete assessment. Patient lives at home with family. Patient is independent. At discharge patient plans to return home and feels this is a safe discharge. CM discussed availability of home health, rehab services, and medical equipment. Patient will have family to transport home. Patient denied known discharge needs at this time. CM will continue to follow and will assist as needed with dc plans/needs Bird Sitter: Lexi Bianchi DCPIA - Discharge Planning Initial Assessment Updated by [email or web address]: Lexi Bianchi on 05/12/20 10:06 pm * Is the patient Alert and Oriented? Yes * How many steps to enter\exit or inside your home? ramp * PCP ZAVALA * Pharmacy [facility] * Preadmission Environment Home with Family * ADLs Independent * Equipment None * List name and contact numbers for known caregivers / representatives who currently or will assist patient after discharge: ALANA MARYSE SO - [phone] * Verbal permission to speak to the caregivers and representatives has been obtained from the patient. N/A * Community resources currently utilized None * Additional services required to return to the preadmission environment? No * Can the patient safely return to the preadmission environment? Yes * Has this patient been hospitalized within the prior 30 days at any hospital? No Coverage Notice Reviewer: [email or web address] Javier Bianchi Notice Issued Date-Time: 05/15/2020 12:02 Notice Type: IM Discharge Notice Notice Delivered To: Patient Relationship to Patient: Mortgage Specialist Name: Delivery Method: HAND - Hand Delivered Elysia Days: Prior Verbal Notification: Recipient Understood Notice: Yes Recipient Signature: Yes Med Rec Note Co-signed by Attending: Coverage Notice Comment: Last DP export: 05/12/20 9:10 p Patient Name: ADELE COSBY Page [phone] at 1830 All edits/amendments must be made on the electronic document DICTATION DATE: 05/15/201829 CUTTER FINISHER: EZRA 05/15/201829 RPT#: [id number] DC DATE:05/15/20 STATUS: DIS IN [facility] [address] [place] [address] END OF REPORT
== END 2020-05-15 13:30 | disposition home or self-care (01) | DRG 38 ==
LOC: D.SDCHOLD 05-08 07:30 → D.CVICU 05-11 07:33
PROVIDERS: ADMIT Thoracic Surgery (Cardiothoracic Vascular Surgery); ATTEND Thoracic Surgery (Cardiothoracic Vascular Surgery)
PROC: 03UL0JZ Supplement Left Internal Carotid Artery with Synthetic Substitute, Open Approach (ICD-10-PCS; 2020-05-11)
PROC: 03CL0ZZ Extirpation of Matter from Left Internal Carotid Artery, Open Approach (ICD-10-PCS; principal; 2020-05-11 15:00)
DX: I65.22 Occlusion and stenosis of left carotid artery (principal); F17.203 Nicotine dependence unspecified, with withdrawal; I10 Essential (primary) hypertension; K21.9 Gastro-esophageal reflux disease without esophagitis; Z86.73 Personal history of transient ischemic attack (TIA), and cerebral infarction without residual deficits; J44.9 Chronic obstructive pulmonary disease, unspecified

== ENCOUNTER → 2021-03-18 12:17 | Outpatient (CLI) | payer OTHER ==
[2020-05-13 11:08] VITALS: BMI 19.5
[~2021-03-18 12:17] MED LIST changes: +BAYER CHEWABLE81 MG PO; +HYDRALAZINE HCL10 MG PO; +NORVASC10 MG PO; +PLAVIX75 MG PO; +TOPROL XL25 MG PO; +VISTARIL50 MG PO
== END | disposition home or self-care (01) ==
LOC: D.CT 12:17
PROVIDERS: ATTEND Internal Medicine Cardiovascular Disease
DX: I65.22 Occlusion and stenosis of left carotid artery (principal)